=== PATIENT | male | born 1975 | race Hispanic/Latino ===

== ENCOUNTER 2020-08-11 17:50 | Emergency (ER) | payer OTHER ==
[~2020-08-11] VITALS: Ht 175.3 cm; Wt 68.0 kg
[2020-08-11] MEDS ORDERED: PREDNISONE 20 MG TAB ONE (19:54)
[2020-08-11] MEDS ORDERED: HYDROCODONE/APAP 5MG-325MG TAB ONE (19:55)
[2020-08-11] MEDS ORDERED: PREDNISONE50 MG PO (20:23)
[2020-08-11] MEDS ORDERED: NORCO 10-325 T1 EACH PO (20:25)
[2020-08-11] MEDS ORDERED: HYDROCODONE/APAP 5MG-325MG TAB PO ONE (21:45)
[2020-08-11] MEDS ORDERED: PREDNISONE 20 MG TAB PO ONE (21:45)
== END 2020-08-11 20:50 | disposition home or self-care (01) ==
LOC: FSED 19:13
DX: M54.16 Radiculopathy, lumbar region (principal); E11.9 Type 2 diabetes mellitus without complications; F17.210 Nicotine dependence, cigarettes, uncomplicated
CPT/HCPCS: 99283; J7512

== ENCOUNTER 2023-05-23 16:07 | Emergency (ER) | payer BC, OTHER ==
[~2023-05-23] VITALS: Ht 175.3 cm; Wt 68.0 kg
[~2023-05-23 16:07] MED LIST: NORCO 10-325 T1 EACH PO; PREDNISONE50 MG PO
[2023-05-23] MEDS ORDERED: METFORMIN HCL500 MG PO ×2 (16:22→18:02)
[2023-05-23 16:55] LABS: BASOPHILS % 0.2 % (0.0-1.0); EOSINOPHILS # (AUTO) 0.2 (0.0-0.4); EOSINOPHILS % 1.2 % (0.0-6.0); HEMOGLOBIN 11.5 g/dL (14.0-18.0); LYMPHOCYTES # (AUTO) 1.8 (1.0-3.2); LYMPHOCYTES % 9.8 % (18.0-39.1); MEAN CORPUSCULAR HEMOGLOBIN 30.4 pg (28-32); MEAN CORPUSCULAR HGB CONC 34.8 g/dL (31-35); MEAN CORPUSCULAR VOLUME 87.3 fL (81-99); MONOCYTES % 5.3 % (4.4-11.3); NEUTROPHILS # (AUTO) 15.1 (2.1-6.9); NEUTROPHILS % 83.1 % (38.7-80.0); PLATELET COUNT 310 x10e3/uL (140-360); RED BLOOD COUNT 3.78 x10e6/uL (4.3-5.7); WHITE BLOOD COUNT 18.16 x10e3/uL (4.8-10.8)
[2023-05-23 17:11] LABS: ANION GAP 15.2 mmol/L (8-16); CALCIUM 8.9 mg/dL (8.4-10.2); CREATININE, SERUM 1.06 mg/dL (0.72-1.25); POTASSIUM 4.2 mmol/L (3.5-5.1)
[2023-05-23] MEDS ORDERED: AMOX TR-K CLV1 EAC2 PO (18:02)
[2023-05-23] MEDS ORDERED: ULTRAM 50MG50 MG PO (18:02)
[2023-05-23 18:32] VITALS: O2SAT 100
== END 2023-05-23 18:32 | disposition home or self-care (01) ==
LOC: ER 16:21
DX: E11.621 Type 2 diabetes mellitus with foot ulcer (principal); E11.65 Type 2 diabetes mellitus with hyperglycemia; L97.519 Non-pressure chronic ulcer of other part of right foot with unspecified severity; R50.9 Fever, unspecified; F17.210 Nicotine dependence, cigarettes, uncomplicated
CPT/HCPCS: 36415; 73630; 80048; 85025; 87040; 99284; J2543

== ENCOUNTER 2023-05-26 09:20 | Inpatient (IN) | payer BC ==
[~2023-05-26] VITALS: Ht 175.3 cm; Wt 68.0 kg
[~2023-05-26 09:20] MED LIST changes: +AMOX TR-K CLV1 EAC2 PO; +METFORMIN HCL500 MG PO; +ULTRAM 50MG50 MG PO
[2023-05-26 09:59] LABS: BASOPHILS # (AUTO) 0.1 (0.0-0.1); BASOPHILS % 0.4 % (0.0-1.0); EOSINOPHILS # (AUTO) 0.1 (0.0-0.4); EOSINOPHILS % 0.4 % (0.0-6.0); HEMATOCRIT 38.2 % (38.2-49.6); HEMOGLOBIN 13.2 g/dL (14.0-18.0); LYMPHOCYTES # (AUTO) 1.5 (1.0-3.2); LYMPHOCYTES % 8.7 % (18.0-39.1); MEAN CORPUSCULAR HEMOGLOBIN 30.3 pg (28-32); MEAN CORPUSCULAR HGB CONC 34.6 g/dL (31-35); MEAN CORPUSCULAR VOLUME 87.8 fL (81-99); MONOCYTES # (AUTO) 1.1 (0.2-0.8); MONOCYTES % 6.5 % (4.4-11.3); NEUTROPHILS # (AUTO) 13.8 (2.1-6.9); PLATELET COUNT 398 x10e3/uL (140-360); RED BLOOD COUNT 4.35 x10e6/uL (4.3-5.7); RED CELL DISTRIBUTION WIDTH 11.8 % (11.7-14.4); WHITE BLOOD COUNT 16.63 x10e3/uL (4.8-10.8)
[2023-05-26 10:19] LABS: ANION GAP 18.2 mmol/L (8-16); CALCIUM 10.7 mg/dL (8.4-10.2); CREATININE, SERUM 1.13 mg/dL (0.72-1.25); POTASSIUM 4.2 mmol/L (3.5-5.1)
[2023-05-26] MEDS: LACTATED RINGER'S 1,000 ML INJ SCH ×2 (13:31→18:22)
[2023-05-26] MEDS ORDERED: Vancomycin IV 1 GM in SODIUM CHLORIDE 0.9% 250ML 250 ML IV ONE (14:15)
[2023-05-26] MEDS ORDERED: LACTATED RINGER'S 1,000 ML IV ONE (14:15)
[2023-05-26 15:19] LABS: CLARITY,URINE CLEAR (CLEAR); COLOR,URINE YELLOW (YELLOW); KETONES,URINE 2+ (NEGATIVE); LEUKOCYTE ESTERASE ,URINE NEGATIVE (NEGATIVE); NITRITE,URINE NEGATIVE (NEGATIVE); PROTEIN,URINE DIPSTICK NEGATIVE (NEGATIVE); URINE UROBILINOGEN 0.2 mg/dL (0.2 - 1)
[2023-05-26 15:40] LABS: RBC,URINE 0-5 /HPF (0-5)
[2023-05-26 16:17] VITALS: BP 132/79; PULSE 100; RESP 16; TEMP 100.5; O2SAT 98
[2023-05-26 16:31] VITALS: BP 132/79; PULSE 100; RESP 16; TEMP 100.5; O2SAT 98
[2023-05-26 16:34] VITALS: BP 132/79; PULSE 100; RESP 16; TEMP 100.5; O2SAT 98
[2023-05-26 16:35] VITALS: BP 132/79; PULSE 100; RESP 16; TEMP 100.5; O2SAT 98
[2023-05-26] MEDS ORDERED: INSULIN GL100 UNIT/3 (17:51)
[2023-05-26] MEDS ORDERED: LISINOPRIL2.5 MG PO (17:51)
[2023-05-26] MEDS ORDERED: ACETAMINOPHEN 325 MG TAB PO PRN (19:00)
[2023-05-26] MEDS ORDERED: CLONIDINE HCL 0.1 MG TAB PO PRN (19:00)
[2023-05-26] MEDS ORDERED: ONDANSETRON HCL INJ 2MG/ML 2ML 2 MG/ML VIAL IV PRN (19:00)
[2023-05-26 20:00] VITALS: BP 137/82; PULSE 95; RESP 16; TEMP 98.6; O2SAT 97
[2023-05-26 21:00] VITALS: BP 137/82; PULSE 95; RESP 16; TEMP 98.6; O2SAT 97
[2023-05-26] MEDS: INSULIN LISPRO 100 UNIT/1 ML 3ML VIAL SQ SCH (21:00)
[2023-05-26] MEDS: ACETAMINOPHEN/CODEINE 300MG - 30MG TAB PO PRN (21:46)
[2023-05-27] VITALS (7 sets, daily range): BP systolic 109–137; BP diastolic 69–77; PULSE 75–94; RESP 16–19; TEMP 97.7–98.5; O2SAT 96–100
[2023-05-27] MEDS: ACETAMINOPHEN/CODEINE 300MG - 30MG TAB PO PRN ×5 (01:31→19:52)
[2023-05-27] MEDS ORDERED: SODIUM CHLORIDE 0.9% 250ML 250 ML ONE (04:23)
[2023-05-27 06:04] LABS: BASOPHILS # (AUTO) 0.1 (0.0-0.1); BASOPHILS % 0.4 % (0.0-1.0); EOSINOPHILS # (AUTO) 0.3 (0.0-0.4); EOSINOPHILS % 1.9 % (0.0-6.0); HEMATOCRIT 31.6 % (38.2-49.6); HEMOGLOBIN 10.9 g/dL (14.0-18.0); LYMPHOCYTES # (AUTO) 2.8 (1.0-3.2); LYMPHOCYTES % 20.2 % (18.0-39.1); MEAN CORPUSCULAR HEMOGLOBIN 30.3 pg (28-32); MEAN CORPUSCULAR HGB CONC 34.5 g/dL (31-35); MEAN CORPUSCULAR VOLUME 87.8 fL (81-99); MONOCYTES # (AUTO) 1.6 (0.2-0.8); MONOCYTES % 11.7 % (4.4-11.3); NEUTROPHILS % 64.7 % (38.7-80.0); PLATELET COUNT 372 x10e3/uL (140-360); RED CELL DISTRIBUTION WIDTH 11.7 % (11.7-14.4)
[2023-05-27 06:35] LABS: ANION GAP 15.5 mmol/L (8-16); CALCIUM 9.5 mg/dL (8.4-10.2); CREATININE, SERUM 0.8 mg/dL (0.72-1.25); POTASSIUM 3.5 mmol/L (3.5-5.1)
[2023-05-27] MEDS: METFORMIN HCL 500 MG TAB PO SCH ×2 (08:57→16:56)
[2023-05-27] MEDS: INSULIN LISPRO 100 UNIT/1 ML 3ML VIAL SQ SCH ×4 (09:01→20:58)
[2023-05-27] MEDS ORDERED: DEXTROSE 50% SYRINGE 50 ML IV PRN (14:45)
[2023-05-27] MEDS: ENOXAPARIN SOD INJ 40 MG/0.4 ML SYR SC SCH (16:56)
[2023-05-27] MEDS: INSULIN GLARGINE 100 UNITS/ML VIAL SQ SCH (17:03)
[2023-05-28] VITALS (8 sets, daily range): BP systolic 107–125; BP diastolic 70–81; PULSE 73–81; RESP 16–18; TEMP 97.3–98.5; O2SAT 98–100
[2023-05-28] MEDS: ACETAMINOPHEN/CODEINE 300MG - 30MG TAB PO PRN ×3 (00:33→09:19)
[2023-05-28 05:02] LABS: BASOPHILS # (AUTO) 0.1 (0.0-0.1); BASOPHILS % 0.7 % (0.0-1.0); EOSINOPHILS # (AUTO) 0.3 (0.0-0.4); HEMATOCRIT 30.3 % (38.2-49.6); HEMOGLOBIN 10.8 g/dL (14.0-18.0); LYMPHOCYTES # (AUTO) 2.5 (1.0-3.2); LYMPHOCYTES % 25.3 % (18.0-39.1); MEAN CORPUSCULAR HEMOGLOBIN 31.9 pg (28-32); MEAN CORPUSCULAR HGB CONC 35.6 g/dL (31-35); MEAN CORPUSCULAR VOLUME 89.4 fL (81-99); MONOCYTES # (AUTO) 1.4 (0.2-0.8); NEUTROPHILS # (AUTO) 5.4 (2.1-6.9); NEUTROPHILS % 54.8 % (38.7-80.0); PLATELET COUNT 300 x10e3/uL (140-360); RED BLOOD COUNT 3.39 x10e6/uL (4.3-5.7); RED CELL DISTRIBUTION WIDTH 12.3 % (11.7-14.4); WHITE BLOOD COUNT 9.86 x10e3/uL (4.8-10.8)
[2023-05-28 05:31] LABS: ANION GAP 12.8 mmol/L (8-16); CALCIUM 9.2 mg/dL (8.4-10.2); CREATININE, SERUM 0.86 mg/dL (0.72-1.25); POTASSIUM 3.8 mmol/L (3.5-5.1)
[2023-05-28] MEDS: METFORMIN HCL 500 MG TAB PO SCH ×2 (09:08→16:14)
[2023-05-28] MEDS: INSULIN LISPRO 100 UNIT/1 ML 3ML VIAL SQ SCH ×4 (09:10→20:31)
[2023-05-28] MEDS: INSULIN GLARGINE 100 UNITS/ML VIAL SQ SCH (09:11)
[2023-05-28] MEDS ORDERED: ONDANSETRON HCL 4 MG ORAL DISINTEGRATING TAB PO PRN (09:30)
[2023-05-28] MEDS ORDERED: PIPERACILLIN/TAZOBACTAM 3.375 GM VIAL ONE (11:00)
[2023-05-28] MEDS ORDERED: AMOX TR-K CLV1 EAC2 PO (14:02)
[2023-05-28] MEDS: TRAMADOL HCL 50 MG TAB PO PRN ×2 (14:22→20:25)
[2023-05-28] MEDS: ENOXAPARIN SOD INJ 40 MG/0.4 ML SYR SC SCH (16:14)
[2023-05-29] VITALS (9 sets, daily range): BP systolic 105–125; BP diastolic 67–85; PULSE 54–100; RESP 16–18; TEMP 97.3–99.5; O2SAT 97–100
[2023-05-29] MEDS: TRAMADOL HCL 50 MG TAB PO PRN ×4 (02:26→20:33)
[2023-05-29] MEDS: METFORMIN HCL 500 MG TAB PO SCH ×2 (08:47→17:41)
[2023-05-29] MEDS: INSULIN LISPRO 100 UNIT/1 ML 3ML VIAL SQ SCH ×4 (08:49→20:36)
[2023-05-29] MEDS ORDERED: INSULIN GLARGINE 100 UNITS/ML VIAL SQ SCH (09:00)
[2023-05-29] MEDS ORDERED: ULTRAM 50MG50 MG PO (15:28)
[2023-05-29] MEDS: ENOXAPARIN SOD INJ 40 MG/0.4 ML SYR SC SCH (17:41)
[2023-05-30 00:47] VITALS: BP 111/75; PULSE 76; RESP 17; TEMP 98.2; O2SAT 99
[2023-05-30] MEDS: TRAMADOL HCL 50 MG TAB PO PRN ×2 (02:08→08:55)
[2023-05-30 04:50] VITALS: BP 114/77; PULSE 71; RESP 18; TEMP 98.3; O2SAT 99
[2023-05-30] MEDS ORDERED: INSULIN GLARGINE 100 UNITS/ML VIAL SQ SCH (06:00)
[2023-05-30 08:37] VITALS: BP 116/79; PULSE 72; RESP 18; TEMP 98.2; O2SAT 98
[2023-05-30 08:53] VITALS: BP 116/79; PULSE 72; RESP 18; TEMP 98.2; O2SAT 98
[2023-05-30] MEDS: METFORMIN HCL 500 MG TAB PO SCH (08:55)
[2023-05-30] MEDS: INSULIN LISPRO 100 UNIT/1 ML 3ML VIAL SQ SCH (08:58)
[2023-05-30] MEDS ORDERED: CIPRO500 MG PO (11:10)
== END 2023-05-30 11:48 | disposition home or self-care (01) | DRG 872 ==
LOC: ER 09:31 → ERHOLD 14:00 → MED/SURG2 16:01
PROVIDERS: ADMIT Internal Medicine; ATTEND Internal Medicine
DX: A41.9 Sepsis, unspecified organism (principal); L03.115 Cellulitis of right lower limb; Z16.11 Resistance to penicillins; E87.1 Hypo-osmolality and hyponatremia; E11.42 Type 2 diabetes mellitus with diabetic polyneuropathy; E11.628 Type 2 diabetes mellitus with other skin complications; B96.20 Unspecified Escherichia coli [E. coli] as the cause of diseases classified elsewhere; B96.5 Pseudomonas (aeruginosa) (mallei) (pseudomallei) as the cause of diseases classified elsewhere; E11.621 Type 2 diabetes mellitus with foot ulcer; L97.519 Non-pressure chronic ulcer of other part of right foot with unspecified severity; B95.1 Streptococcus, group B, as the cause of diseases classified elsewhere; Z11.52 Encounter for screening for COVID-19; Z91.199 Patient's noncompliance with other medical treatment and regimen due to unspecified reason; Z90.49 Acquired absence of other specified parts of digestive tract; E11.65 Type 2 diabetes mellitus with hyperglycemia; Z79.84 Long term (current) use of oral hypoglycemic drugs; Z79.4 Long term (current) use of insulin
CPT/HCPCS: 36415; 80048; 81001; 82948; 83036; 83605; 85025; 87040; 87071; 87186; 87205; 93926; 96372; 99252; 99284; J1650; J1815; J2543; J7050; U0002